=== PATIENT | male | born 1960 | race Caucasian/White ===

== ENCOUNTER 2022-09-02 14:43 | Observation (INO) ==
[2022-09-02 15:13] LABS: Basophils # (auto) 0.05 K/uL (0-0.2); Basophils % (auto) 0.5 %; Eosinophils # (auto) 0.06 K/uL (0-0.50); Eosinophils % (auto) 0.6 %; Hemoglobin 17.7 g/dl (14.0-18.0); Immature Granulocytes # (auto) 0.02 K/uL (0.01-0.20); Immature Granulocytes % (auto) 0.2 %; Lymphocytes # (auto) 1.84 K/uL (1.2-3.4); Lymphocytes % (auto) 18.9 %; Mean Corpuscular Hemoglobin 32.2 pg (25.0-34.0); Mean Corpuscular Hgb Conc 36.9 g/dL (32.0-36.0); Mean Corpuscular Volume 87.4 fL (80.0-100.0); Monocytes # (auto) 0.86 K/uL (0.11-0.59); Monocytes % (auto) 8.8 %; Neutrophils # (auto) 6.93 K/uL (1.40-6.50); Platelet Count 350 K/uL (130-400); RDW Coefficient of Variation 11.8 % (11.5-14.5); RDW Standard Deviation 37.8 fL (36.4-46.3); Red Blood Count 5.49 M/uL (4.70-6.10); White Blood Count 9.76 K/ul (4.8-10.8)
[2022-09-02 15:33] LABS: Alanine Aminotransferase 19 U/L (7-52); Albumin Globulin Ratio 1.5 (0.9-2); Albumin Level 4.8 gm/dl (3.4-5.0); Alkaline Phosphatase 69 U/L (34-104); Anion Gap 6 (3-11); Aspartate Aminotransferase 21 U/L (13-39); BUN Creatinine Ratio 11.9 (10-20); Bilirubin,Total 1.8 mg/dl (0.2-1.0); Blood Urea Nitrogen 14 mg/dl (6-23); Calcium 9.9 mg/dl (8.5-10.1); Carbon Dioxide 31 mmol/L (21-32); Chloride 98 mmol/L (98-107); Est GFR (African American) 75.1 ml/min; Est GFR (Non-African American) 64.8 ml/min; Globulin 3.2 gm/dl (2.5-4.0); Glucose 111 mg/dl (70-99(Fasting)); Lipase 33 U/L (11-82); Potassium 3.9 mmol/L (3.5-5.1); Sodium 135 mmol/L (136-145)
--- NOTE | 2022-09-02 15:59 | Emergency Department Note ---
ED Provider Note History of Present Illness Chief Complaint: Abdominal Pain Stated Complaint: ABDOMINAL PAIN Time Seen by Provider: 09/02/22 15:57 This is a 62-year-old male relatively healthy on no daily medications accompanied by his who presents with 3 to 4 days of abdominal pain and nausea. This began gradually. The pain is mostly located across the upper abdomen. The pain comes and goes. He has not identified any specific exacerbating or alleviating factors. He had a low-grade temperature of 99.8 and up to 101 several days ago though has not had any fevers since. He has not wanted to eat very much, thinks he is trying to stay hydrated and denies any dark urine. Symptoms do not seem to be exacerbated by eating food. Endorses some intermittent bloating. He endorses a little bit of constipation over the past 1 to 2 days which is abnormal for him. His thinks that his abdomen may be slightly more yellow than normal, no changes in his eye color. He tried taking a leftover oxycodone from his prior shoulder surgery 1.5 months ago and did have some relief in pain last night. He denies any vomiting or diarrhea, but does feel nauseous right now. Last colonoscopy was 1.5 years ago, he thinks it was relatively normal. No significant GI history, no prior abdominal surgeries. Denies any sinus congestion, cough, chest pain, shortness of breath, dysuria, hematuria. Home Medications Medication Instructions Recorded Confirmed Type oxycodone 5 mg tablet 2.5 mg PO ONCE PRN Pain 09/02/22 09/02/22 History Allergies Allergy/AdvReac Type Severity Reaction Status Date / Time No Known Allergies Allergy Verified 09/02/22 17:47 Past Med/Surg History Medical History History of COVID-19 "begin." 03/2022, home test, not hosp; no [id number] test Rotator cuff tear, right Surgical History History of esophagogastroduodenoscopy (EGD) "balloon dilation of my esophageal sphincter" Hx of colonoscopy Social History Smoking Status: Never smoker Second Hand Exposure: No; Hx Alcohol Use: Yes Hx Substance Use: No Preferred Language: Moroccan Communication Ability: Effective District Court Judge Required: No Current Living Situation: Spouse Feels Safe at Home: Yes Assistive Devices: Other Physical Exam Vital Signs Vital Signs - 24 hr 09/02/22 14:43 09/02/22 14:43 09/02/22 17:48 Temperature 97.5 F L Temperature Source Temporal Artery Scan Pulse Rate 78 Pulse Rate [Apical] 78 69 Respiratory Rate 16 16 18 Blood Pressure 149/97 H Blood Pressure [Left Arm] 149/97 H 162/69 H Blood Pressure Mean 114 Blood Pressure Mean [Left Arm] 114 100 Pulse Oximetry 99 99 99 Oxygen Delivery Method Room Air Sepsis Recent Fever Within 48 Hours No Sepsis New/Unexplained Change in Mental Status N/A Sepsis Action Taken by Nursing No Action Required 09/02/22 19:07 Temperature Temperature Source Pulse Rate Pulse Rate [Apical] 67 Respiratory Rate 18 Blood Pressure Blood Pressure [Left Arm] 162/95 H Blood Pressure Mean Blood Pressure Mean [Left Arm] 117 Pulse Oximetry 99 Oxygen Delivery Method Room Air Sepsis Recent Fever Within 48 Hours Sepsis New/Unexplained Change in Mental Status Sepsis Action Taken by Nursing CONSTITUTIONAL: Well developed, well nourished, mildly ill and uncomfortable appearing, otherwise pleasant. HEAD: Normocephalic, atraumatic. EYES: PERRL, conjunctivae normal, extraocular muscles intact. No scleral icterus ENMT: External ears normal. Nose with normal external appearance, no congestion. Oral mucous membranes slightly dry. Oropharynx otherwise normal. NECK: Full active range of motion. LYMPHATIC: No cervical adenopathy RESPIRATORY: Breathing unlabored and symmetric. Lungs clear to auscultation bilaterally. No wheeze, rales, or rhonchi. CARDIOVASCULAR: Regular rate and rhythm. No murmurs, rubs, or gallops. CHEST: Nontender, no crepitus. ABDOMEN: Mild jaundice of the abdomen. Normal bowel sounds. Patient slightly tense when palpating the diffuse abdomen. There is no focal tenderness. No peritonitis. Negative De Jesus sign. No CVA tenderness bilaterally. MUSCULOSKELETAL: Moves all extremities at all joints without pain or difficulty. No edema in bilateral lower extremities. SKIN: [place], warm, dry. NEUROLOGIC: Awake, alert, oriented. Gaze is conjugate. Face symmetric, speech normal. Moves head and all four extremities spontaneously. PSYCHIATRIC: Appropriate. Normal affect Course Administered Medications Discontinued Medications Sodium Chloride (Nss 1000ml) 1,000 mls @ 999 mls/hr IV .Q1H1M ONE Stop: 09/02/22 17:22 Last Infusion: 09/02/22 18:20 Dose: 0 mls/hr Documented By: Admin: 09/02/22 17:46 Dose: 999 mls/hr Documented By: CANDI Ioversol (Optiray 350 100ml) 90 ml IV ONCE ONE Stop: 09/02/22 16:58 Last Admin: 09/02/22 16:57 Dose: 90 ml Documented By: IVELISSE Morphine Sulfate (Morphine Sulfate 4 Mg/Ml 1 Ml Carp\\Vial) 4 mg IV NOW STA Stop: 09/02/22 16:23 Last Admin: 09/02/22 17:46 Dose: 4 mg Documented By: CANDI Ondansetron HCl (Ondansetron Inj 2 Mg/Ml 2 Ml Vial) 4 mg IV NOW STA Stop: 09/02/22 16:23 Last Admin: 09/02/22 17:46 Dose: 4 mg Documented By: CANDI Medical Decision Making Differential Diagnosis Diverticulitis, appendicitis, obstruction, hepatobiliary dysfunction, cholecystitis, cholelithiasis, choledocholithiasis, hepatitis, mesenteric adenitis, vascular, cardiac ischemia, malignancy, renal colic, UTI, pyelo nephritis, abscess, perforation, gastroenteritis, foodborne illness, among other pathology Medical Records Attestation: I reviewed the patient's medical records. Laboratory Data 09/02/22 14:54 09/02/22 14:54 Lab Results 09/02/22 09/02/22 09/02/22 Range/Units 14:54 14:54 18:15 WBC 9.76 (4.8-10.8) K/ul RBC 5.49 (4.70-6.10) M/uL Hgb 17.7 (14.0-18.0) g/dl Hct 48.0 (42.0-52.0) % MCV 87.4 (80.0-100.0) fL MCH 32.2 (25.0-34.0) pg MCHC 36.9 H (32.0-36.0) g/dL RDW Std Deviation 37.8 (36.4-46.3) fL RDW Coeff of Shannon 11.8 (11.5-14.5) % Plt Count 350 (130-400) K/uL MPV 10.0 (9.4-12.4) fL Immature Gran % (Auto) 0.2 % Neut % (Auto) 71.0 % Lymph % (Auto) 18.9 % Montgomery % (Auto) 8.8 % Eos % (Auto) 0.6 % Baso % (Auto) 0.5 % Neut # (Auto) 6.93 H (1.40-6.50) K/uL Lymph # (Auto) 1.84 (1.2-3.4) K/uL Montgomery # (Auto) 0.86 H (0.11-0.59) K/uL Eos # (Auto) 0.06 (0-0.50) K/uL Baso # (Auto) 0.05 (0-0.2) K/uL Immature Gran # (Auto) 0.02 (0.01-0.20) K/uL Sodium 135 L (136-145) mmol/L Potassium 3.9 (3.5-5.1) mmol/L Chloride 98 (98-107) mmol/L Carbon Dioxide 31 (21-32) mmol/L Anion Gap 6 (3-11) BUN 14 (6-23) mg/dl Creatinine 1.18 (0.6-1.4) mg/dl Est Cr Clr Drug Dosing Not Reportable Est GFR ( Amer) 75.1 ml/min Est GFR (Non-Af Amer) 64.8 ml/min BUN/Creatinine Ratio 11.9 (10-20) Glucose 111 H (70-99(Fasting)) mg/dl Calcium 9.9 (8.5-10.1) mg/dl Total Bilirubin 1.8 H (0.2-1.0) mg/dl AST 21 (13-39) U/L ALT 19 (7-52) U/L Alkaline Phosphatase 69 (34-104) U/L Troponin I High Sens 6.3 (0-20) pg/ml Total Protein 8.0 (6.0-8.3) gm/dl Albumin 4.8 (3.4-5.0) gm/dl Globulin 3.2 (2.5-4.0) gm/dl Albumin/Globulin Ratio 1.5 (0.9-2) Lipase 33 (11-82) U/L Urine Color Urine Appearance (Clear) Urine pH (4.5-7.5) Ur Specific [place] (1.000-1.030) Urine Protein (Negative) Urine Glucose (UA) (Negative) Urine Ketones (Negative) Urine Blood (Negative) Urine Nitrite (Negative) Urine Bilirubin (Negative) Urine Urobilinogen (Negative) Ur Leukocyte Esterase (Negative) SARS-CoV-2, RNA, NAAT NEGATIVE (NEGATIVE) 09/02/22 Range/Units 18:25 WBC (4.8-10.8) K/ul RBC (4.70-6.10) M/uL Hgb (14.0-18.0) g/dl Hct (42.0-52.0) % MCV (80.0-100.0) fL MCH (25.0-34.0) pg MCHC (32.0-36.0) g/dL RDW Std Deviation (36.4-46.3) fL RDW Coeff of Shannon (11.5-14.5) % Plt Count (130-400) K/uL MPV (9.4-12.4) fL Immature Gran % (Auto) % Neut % (Auto) % Lymph % (Auto) % Montgomery % (Auto) % Eos % (Auto) % Baso % (Auto) % Neut # (Auto) (1.40-6.50) K/uL Lymph # (Auto) (1.2-3.4) K/uL Montgomery # (Auto) (0.11-0.59) K/uL Eos # (Auto) (0-0.50) K/uL Baso # (Auto) (0-0.2) K/uL Immature Gran # (Auto) (0.01-0.20) K/uL Sodium (136-145) mmol/L Potassium (3.5-5.1) mmol/L Chloride (98-107) mmol/L Carbon Dioxide (21-32) mmol/L Anion Gap (3-11) BUN (6-23) mg/dl Creatinine (0.6-1.4) mg/dl Est Cr Clr Drug Dosing Est GFR ( Amer) ml/min Est GFR (Non-Af Amer) ml/min BUN/Creatinine Ratio (10-20) Glucose (70-99(Fasting)) mg/dl Calcium (8.5-10.1) mg/dl Total Bilirubin (0.2-1.0) mg/dl AST (13-39) U/L ALT (7-52) U/L Alkaline Phosphatase (34-104) U/L Troponin I High Sens (0-20) pg/ml Total Protein (6.0-8.3) gm/dl Albumin (3.4-5.0) gm/dl Globulin (2.5-4.0) gm/dl Albumin/Globulin Ratio (0.9-2) Lipase (11-82) U/L Urine Color Yellow Urine Appearance Clear (Clear) Urine pH 6.5 (4.5-7.5) Ur Specific [place] > 1.045 H (1.000-1.030) Urine Protein Negative (Negative) Urine Glucose (UA) Negative (Negative) Urine Ketones 2+ H (Negative) Urine Blood Negative (Negative) Urine Nitrite Negative (Negative) Urine Bilirubin Negative (Negative) Urine Urobilinogen Negative (Negative) Ur Leukocyte Esterase Negative (Negative) SARS-CoV-2, RNA, NAAT (NEGATIVE) Imaging Data Radiologist's Impression: Abdomen/Pelvis CT 09/02/22 16:22 CT OF THE ABDOMEN AND PELVIS WITH CONTRAST CLINICAL HISTORY: 4 days upper abd pain, anorexia, low grade temp COMPARISON STUDY: None. TECHNIQUE: Following IV administration of 90 mL of Optiray, axial images of the abdomen and pelvis were obtained from the lung bases to the proximal femurs. Images were reviewed in the axial, sagittal, and coronal planes. IV contrast was administered without complication. Automated exposure control was utilized for the study. A dose lowering technique was utilized adhering to the principles of ALARA. CT DOSE: 380.72 mGy.cm FINDINGS: Mild circumferential wall thickening of the distal esophagus is noted. No pneumatosis, free air or portal venous gas is present. Liver morphology is normal. There is no biliary ductal dilatation. There is a 2.9 cm intermediate attenuation right hepatic lobe lesion on axial image 106 of 401. This may have minimal nodular peripheral enhancement. Spleen, adrenal glands, kidneys and pancreas are unremarkable. There is no hydronephrosis. Bladder wall thickening is noted. This is accentuated by underdistention. No urinary calculi are present. The caliber and wall thickness of small and large bowel are normal. There is colonic diverticulosis without evidence for acute diverticulitis. There is no evidence for acute appendicitis. There is no free fluid. No acute fracture is present. There are no suspicious osseous lesions. IMPRESSION: 1. No bowel obstruction. No bowel wall thickening. No evidence for acute appendicitis. 2. Mild circumferential wall thickening of the distal esophagus. This may reflect esophagitis. 3. Bladder wall thickening. This could be due to underdistention however could be correlated with urinalysis. 4. 2.9 cm intermediate attenuation right hepatic lobe lesion. This is indeterminate however a hemangioma is favored. Nonemergent right upper quadrant ultrasound is recommended. ACT 112: Negative or not required by law. Electronically signed by: Gage Wilkinson M.D. 09/02/2022 5:48 PM Liver Ultrasound 09/02/22 18:13 ABDOMINAL ULTRASOUND, RIGHT UPPER QUADRANT HISTORY: diffuse upper abd pain, elevated bilirubin. COMPARISON: Abdomen and pelvis CT 09/02/2022. FINDINGS: Pancreas: The pancreatic tail is obscured by overlying bowel gas. The remaining portions of the pancreas are within normal limits. The pancreatic duct is borderline dilated measuring 3 mm in diameter. Liver: There is a 3.2 x 2.7 x 2.5 cm hyperechoic lesion within the right hepatic lobe. Although technically indeterminate by ultrasound this likely represents a hemangioma when compared to the prior CT examination. Gallbladder: Small amount of sludge within the gallbladder. No gallstones. No gallbladder wall thickening. Negative sonographic De Jesus sign. CBD: 8 mm. Right kidney: No hydronephrosis. IMPRESSION: 1. Interval development of mild dilatation of the common bile duct and main pancreatic duct since the same day CT performed 3 hours earlier. Therefore, this could represent an obstructing stone or less likely an occult obstructing lesion. GI consultation recommended. 2. Redemonstration of the 3.2 x 2.7 x 2.5 cm hyperechoic lesion within the right hepatic lobe. This favors a hemangioma. ACT 112: Negative or not required by law. . Electronically signed by: Jacoby Lee M.D. 09/02/2022 7:46 PM ECG Data Attestation: I personally reviewed and interpreted this ECG as follows: (Sinus rhythm with a rate of 67. Intervals within normal limits. Normal axis. No acute ST elevation or evidence of ischemia. When compared to prior from 06/13/2022, no significant change.) MDM Narrative 62-year-old male presents with 3 to 4 days of generalized upper abdominal pain, anorexia, nausea. He had a low-grade temperature several days ago. Reports some constipation over the past few days which is abnormal for him. No significant GI history. Patient is mildly uncomfortable and ill-appearing though is otherwise pleasant, in no distress. His abdomen appears slightly jaundiced and I confirmed this after his visualized his abdomen. He has some diffuse abdominal tenderness however no focal tenderness is appreciated. Negative De Jesus sign. Oral mucous membranes are dry. Patient was given IV fluids, morphine, and Zofran for pain and nausea. Labs demonstrate no leukocytosis or anemia. Bilirubin is elevated at 1.8. Urine is concentrated at 1.045 and there are ketones present though no evidence of infection. COVID is negative. ECG and troponin are negative. CT of the abdomen pelvis was obtained demonstrating mild circumferential narrowing of the distal esophagus, this is patient's baseline after speaking with him. No other acute abnormalities were identified. Due to his elevation in bilirubin and symptoms, right upper quadrant ultrasound was obtained demonstrating interval dilation of the common bile duct and main pancreatic duct up to 8 mm concerning for an obstructing stone or less likely occult obstructing lesion. Patient rested comfortably and stated that he was feeling better after the initial therapy. His vitals remained stable. He remained hemodynamically stable. Due to his potentially evolving presentation with an elevation in bilirubin and slight jaundice, I recommended admission to the hospital with GI consult, may require ERCP. Patient comfortable with this plan. Case was discussed with [facility] hospitalist group and patient will be admitted for further evaluation and management. Impression Common bile duct dilatation, Elevated bilirubin, Acute upper abdominal pain Discharge Plan Visit Data Chief Complaint: Abdominal Pain Stated Complaint: ABDOMINAL PAIN ED Provider: Schuyler Funes ED Midlevel Provider: Sanjay Felton Discharge Problem: Common bile duct dilatation, Elevated bilirubin, Acute upper abdominal pain Patient Disposition: Admitted As Inpatient Condition: Good Forms Stand Alone Forms[facility] Pres[facility] Prescriptions: No Action oxycodone 5 mg tablet 2.5 mg PO ONCE PRN (Reason: Pain) Rx Instructions: PER PT'S SPOUSE "HAD A FEW LEFT OVER FROM SURGERY IN MAY". Referrals Referrals: Niels Cruz MD [Primary Care Provider] -
[2022-09-02] MEDS ORDERED: ONDANSETRON INJ 2 MG/ML 2 ML VIAL IV STA (16:22)
[2022-09-02] MEDS ORDERED: MoRPHine SULFATE 4 MG/ML 1 ML CARP\\VIAL IV STA (16:22)
[2022-09-02] MEDS ORDERED: SODIUM CHLORIDE 0.9% 1000ML 1,000 ML IV ONE (16:22)
[2022-09-02] MEDS ORDERED: OPTIRAY 350 100ml IV ONE (16:57)
--- NOTE | 2022-09-02 17:49 | CT Scan Report ---
CT OF THE ABDOMEN AND PELVIS WITH CONTRAST CLINICAL HISTORY: 4 days upper abd pain, anorexia, low grade temp COMPARISON STUDY: None. TECHNIQUE: Following IV administration of 90 mL of Optiray, axial images of the abdomen and pelvis we re obtained from the lung bases to the proximal femurs. Images were reviewed in the axial, sagittal, and coronal planes. IV contrast was administered without complication. Automated exposure control wa s utilized for the study. A dose lowering technique was utilized adhering to the principles of ALARA . CT DOSE: 380.72 mGy.cm FINDINGS: Mild circumferential wall thickening of the distal esophagus is noted. No pneumatosis, free air or portal venous gas is present. Liver morphology is normal. There is no biliary ductal dilatati on. There is a 2.9 cm intermediate attenuation right hepatic lobe lesion on axial image 106 of 401. T his may have minimal nodular peripheral enhancement. Spleen, adrenal glands, kidneys and pancreas are unremarkable. There is no hydronephrosis. Bladder wall thickening is noted. This is accentuated by u nderdistention. No urinary calculi are present. The caliber and wall thickness of small and large bow el are normal. There is colonic diverticulosis without evidence for acute diverticulitis. There is no evidence for acute appendicitis. There is no free fluid. No acute fracture is present. There are no suspicious osseous lesions. IMPRESSION: 1. No bowel obstruction. No bowel wall thickening. No evidence for acute appendicitis. 2. Mild circumferential wall thickening of the distal esophagus. This may reflect esophagitis. 3. Bladder wall thickening. This could be due to underdistention however could be correlated with uri nalysis. 4. 2.9 cm intermediate attenuation right hepatic lobe lesion. This is indeterminate however a hemangi linda is favored. Nonemergent right upper quadrant ultrasound is recommended. ACT 112: Negative or not required by law. Electronically signed by: Gage Wilkinson M.D. 09/02/2022 5:48 PM
[2022-09-02 18:11] LABS: Troponin I High Sensitivity 6.3 pg/ml (0-20)
[2022-09-02 18:46] LABS: Appearance Urine Clear (Clear); Bilirubin Urine Negative (Negative); Blood Urine Negative (Negative); Color Urine Yellow; Glucose Urine UA Negative (Negative); Ketones Urine 2+ (Negative); Leukocyte Esterase Urine Negative (Negative); Nitrite Urine Negative (Negative); Protein Urine Negative (Negative); Specific Gravity Urine > 1.045 (1.000-1.030); Urobilinogen Urine Negative (Negative); pH Urine 6.5 (4.5-7.5)
--- NOTE | 2022-09-02 19:47 | Ultrasound Report ---
ABDOMINAL ULTRASOUND, RIGHT UPPER QUADRANT HISTORY: diffuse upper abd pain, elevated bilirubin. COMPARISON: Abdomen and pelvis CT 09/02/2022. FINDINGS: Pancreas: The pancreatic tail is obscured by overlying bowel gas. The remaining portions of the pancr eas are within normal limits. The pancreatic duct is borderline dilated measuring 3 mm in diameter. Liver: There is a 3.2 x 2.7 x 2.5 cm hyperechoic lesion within the right hepatic lobe. Although techn ically indeterminate by ultrasound this likely represents a hemangioma when compared to the prior CT examination. Gallbladder: Small amount of sludge within the gallbladder. No gallstones. No gallbladder wall thicke eugenio. Negative sonographic De Jesus sign. CBD: 8 mm. Right kidney: No hydronephrosis. IMPRESSION: 1. Interval development of mild dilatation of the common bile duct and main pancreatic duct since the same day CT performed 3 hours earlier. Therefore, this could represent an obstructing stone or less likely an occult obstructing lesion. GI consultation recommended. 2. Redemonstration of the 3.2 x 2.7 x 2.5 cm hyperechoic lesion within the right hepatic lobe. This f avors a hemangioma. ACT 112: Negative or not required by law. . Electronically signed by: Jacoby Lee M.D. 09/02/2022 7:46 PM
--- NOTE | 2022-09-02 21:03 | History & Physical Report ---
Date of Service September 02, 2022 Assessment & Plan (1) Acute upper abdominal pain: Plan: 62-year-old male with no significant past medical history presenting with 4 days of persistent upper abdominal pain, nausea and bloating. He is afebrile and hemodynamically stable, nontoxic in appearance on exam. Labs as above are significant for elevation of total bilirubin = 1.8. Normal AST, ALT, alkaline phosphatase and lipase. Liver ultrasound reveals small amount of sludge within the gallbladder, no gallstones or gallbladder wall thickening. Negative sonographic De Jesus sign. He does have mild dilatation of the common bile duct in the main pancreatic duct. CBD measures 8 mm. Also found with a 3.2 x 2.7 x 2.5 cm hyperechoic lesion in the right hepatic lobe favoring hemangioma. Concern for obstructing stone as etiology of pain, mild elevation of total bilir ubin and dilatation of CBD and pancreatic ducts. No evidence of acute cholecystitis, pancreatitis or cholangitis at this time. Observation to medical floor Keep n.p.o. Check MRCPpatient reports that he is severely claustrophobic and requires medication prior to MRI imaging. 1 mg of IV Valium has been ordered to be administered on-call to MRI. Repeat LFTs in the morning Morphine as needed for pain Zofran as needed for nausea Empiric Zosyn for now GI consultation appreciated -Patient had recent repair of his right rotator cuff performed on 07/10/2022. He requests careful positioning of his upper extremities for any imaging studies or procedures he may require. Patient with prior esophageal dilation. He is requesting that this be performed again if possible should he require procedure tomorrow. F/E/NLR at 125 mL/h x 2 L, electrolytes within normal limits, n.p.o. Prophylaxislow risk for DVT, IV fluids and encourage ambulation Codefull per discussion with patient, at bedside Dispositionobservation to medical History of Present Illness Chief Complaint: abdominal pain Primary Care Provider: Niels Cruz MD Elliot Gonzalez is a 62-year-old male with no significant past medical history presenting with 4 days of persistent abdominal pain. Patient states 4 days ago he developed discomfort in the upper abdomen. He initially thought that it was secondary to a "stomach bug". However, the pain has been persistent for the last 4 days. Pain is severe ranging 7-10/10, constant, nonradiating, nonpleuritic. He has had nausea as well as the feeling of bloating with minimal oral intake. No vomiting or diarrhea. He has not eaten or drank much over the last 4 days. Patient did take half an oxycodone tablet she had leftover from his recent rotator cuff surgery. He reports some relief with that. He was able to sleep through the night and felt slightly better this morning. Otherwise,he denies chest pain, cough, shortness of breath. Denies fever or chills. No additional complaints at this time. In the ER, patient is afebrile, mildly hypertensive otherwise hemodynamically stable. No acute distress. He was administered morphine as well as Zofran which improved his symptoms. ER course: Morphine 4 mg IV Zofran 4 mg IV Normal saline x1 L Allergies Allergy/AdvReac Type Severity Reaction Status Date / Time No Known Allergies Allergy Verified 09/02/22 17:47 Home Medications Medication Instructions Recorded Confirmed Type oxycodone 5 mg tablet 2.5 mg PO ONCE PRN Pain 09/02/22 09/02/22 History Past Med/Surg History Medical History Rotator cuff tear, right Surgical History History of esophagogastroduodenoscopy (EGD) "balloon dilation of my esophageal sphincter" History of repair of rotator cuff 2performed by Dr. Khadar Arcos Hx of colonoscopy Social History Smoking Status: Never smoker Second Hand Exposure: No; Hx Alcohol Use: Yes Hx Substance Use: No Preferred Language: Namibian Communication Ability: Effective Corporate Safety Coordinator Required: No Current Living Situation: Spouse Feels Safe at Home: Yes Assistive Devices: Other Review of Systems Review of Systems: All systems reviewed & are unremarkable except as noted in HPI & below Physical Exam Physical Exam: General: patient resting comfortably, NAD, non-toxic in appearance, AA&O x 4 Skin: warm, dry, intact, no rashes or lesions HEENT: NC/AT, PERRL, EOMI, anicteric sclera, conjunctiva without injection, external ear normal to inspection and nontender, nares patent, slightly dry mucus membranes, dentition intact, no oropharyngeal lesions, neck supple, trachea midline, no LAD, no thyromegaly, no JVD Heart: +S1/S2, regular, no m/r/g Lungs: equal air entry bilaterally, no rales/rhonchi/wheezes Abd: +BS, soft, mild tenderness in the right upper quadrant without rebound/guarding/peritoneal signs, abdomen nondistended, no masses/organomegal y/ascites Ext: warm, 2+ pulses in UE/LE bilaterally, no clubbing/cyanosis or edema Neuro: nonfocal, patient AA&O x 4, speech intact, no facial droop, moving all extremities on command with equal strength 5/5 Results & Data Results & Data ([facility]) Vital Signs (Past 12 Hours) Vital Signs Temp Pulse Pulse Resp BP BP Pulse Ox 09/02/22 19:07 67 18 162/95 H 99 09/02/22 17:48 69 18 162/69 H 99 09/02/22 14:43 78 16 149/97 H 99 09/02/22 14:43 36.4 C L 78 16 149/97 H 99 O2 Del Method 09/02/22 19:07 Room Air 09/02/22 17:48 Room Air 09/02/22 14:43 09/02/22 14:43 Laboratory Results Laboratory Results WBC 9.76 K/ul (4.8-10.8) 09/02/22 14:54 RBC 5.49 M/uL (4.70-6.10) 09/02/22 14:54 Hgb 17.7 g/dl (14.0-18.0) 09/02/22 14:54 Hct 48.0 % (42.0-52.0) 09/02/22 14:54 MCV 87.4 fL (80.0-100.0) 09/02/22 14:54 MCH 32.2 pg (25.0-34.0) 09/02/22 14:54 MCHC 36.9 g/dL (32.0-36.0) H 09/02/22 14:54 RDW Std Deviation 37.8 fL (36.4-46.3) 09/02/22 14:54 RDW Coeff of Shannon 11.8 % (11.5-14.5) 09/02/22 14:54 Plt Count 350 K/uL (130-400) 09/02/22 14:54 MPV 10.0 fL (9.4-12.4) 09/02/22 14:54 Immature Gran % (Auto) 0.2 % 09/02/22 14:54 Neut % (Auto) 71.0 % 09/02/22 14:54 Lymph % (Auto) 18.9 % 09/02/22 14:54 Wayne % (Auto) 8.8 % 09/02/22 14:54 Eos % (Auto) 0.6 % 09/02/22 14:54 Baso % (Auto) 0.5 % 09/02/22 14:54 Neut # (Auto) 6.93 K/uL (1.40-6.50) H 09/02/22 14:54 Lymph # (Auto) 1.84 K/uL (1.2-3.4) 09/02/22 14:54 Wayne # (Auto) 0.86 K/uL (0.11-0.59) H 09/02/22 14:54 Eos # (Auto) 0.06 K/uL (0-0.50) 09/02/22 14:54 Baso # (Auto) 0.05 K/uL (0-0.2) 09/02/22 14:54 Immature Gran # (Auto) 0.02 K/uL (0.01-0.20) 09/02/22 14:54 Sodium 135 mmol/L (136-145) L 09/02/22 14:54 Potassium 3.9 mmol/L (3.5-5.1) 09/02/22 14:54 Chloride 98 mmol/L (98-107) 09/02/22 14:54 Carbon Dioxide 31 mmol/L (21-32) 09/02/22 14:54 Anion Gap 6 (3-11) 09/02/22 14:54 BUN 14 mg/dl (6-23) 09/02/22 14:54 Creatinine 1.18 mg/dl (0.6-1.4) 09/02/22 14:54 Est Cr Clr Drug Dosing Not Reportable 09/02/22 14:54 Est GFR ( Amer) 75.1 ml/min 09/02/22 14:54 Est GFR (Non-Af Amer) 64.8 ml/min 09/02/22 14:54 BUN/Creatinine Ratio 11.9 (10-20) 09/02/22 14:54 Glucose 111 mg/dl (70-99(Fasting)) H 09/02/22 14:54 Calcium 9.9 mg/dl (8.5-10.1) 09/02/22 14:54 Total Bilirubin 1.8 mg/dl (0.2-1.0) H 09/02/22 14:54 AST 21 U/L (13-39) 09/02/22 14:54 ALT 19 U/L (7-52) 09/02/22 14:54 Alkaline Phosphatase 69 U/L (34-104) 09/02/22 14:54 Troponin I High Sens 6.3 pg/ml (0-20) 09/02/22 14:54 Total Protein 8.0 gm/dl (6.0-8.3) 09/02/22 14:54 Albumin 4.8 gm/dl (3.4-5.0) 09/02/22 14:54 Globulin 3.2 gm/dl (2.5-4.0) 09/02/22 14:54 Albumin/Globulin Ratio 1.5 (0.9-2) 09/02/22 14:54 Lipase 33 U/L (11-82) 09/02/22 14:54 Urine Color Yellow 09/02/22 18:25 Urine Appearance Clear (Clear) 09/02/22 18:25 Urine pH 6.5 (4.5-7.5) 09/02/22 18:25 Ur Specific Upham > 1.045 (1.000-1.030) H 09/02/22 18:25 Urine Protein Negative (Negative) 09/02/22 18:25 Urine Glucose (UA) Negative (Negative) 09/02/22 18:25 Urine Ketones 2+ (Negative) H 09/02/22 18:25 Urine Blood Negative (Negative) 09/02/22 18:25 Urine Nitrite Negative (Negative) 09/02/22 18:25 Urine Bilirubin Negative (Negative) 09/02/22 18:25 Urine Urobilinogen Negative (Negative) 09/02/22 18:25 Ur Leukocyte Esterase Negative (Negative) 09/02/22 18:25 SARS-CoV-2, RNA, NAAT NEGATIVE (NEGATIVE) 09/02/22 18:15 Impressions Abdomen/Pelvis CT 09/02/22 16:22 CT OF THE ABDOMEN AND PELVIS WITH CONTRAST CLINICAL HISTORY: 4 days upper abd pain, anorexia, low grade temp COMPARISON STUDY: None. TECHNIQUE: Following IV administration of 90 mL of Optiray, axial images of the abdomen and pelvis were obtained from the lung bases to the proximal femurs. Images were reviewed in the axial, sagittal, and coronal planes. IV contrast was administered without complication. Automated exposure control was utilized for the study. A dose lowering technique was utilized adhering to the principles of ALARA. CT DOSE: 380.72 mGy.cm FINDINGS: Mild circumferential wall thickening of the distal esophagus is noted. No pneumatosis, free air or portal venous gas is present. Liver morphology is normal. There is no biliary ductal dilatation. There is a 2.9 cm intermediate attenuation right hepatic lobe lesion on axial image 106 of 401. This may have minimal nodular peripheral enhancement. Spleen, adrenal glands, kidneys and pancreas are unremarkable. There is no hydronephrosis. Bladder wall thickening is noted. This is accentuated by underdistention. No urinary calculi are present. The caliber and wall thickness of small and large bowel are normal. There is colonic diverticulosis without evidence for acute diverticulitis. There is no evidence for acute appendicitis. There is no free fluid. No acute fracture is present. There are no suspicious osseous lesions. IMPRESSION: 1. No bowel obstruction. No bowel wall thickening. No evidence for acute appendicitis. 2. Mild circumferential wall thickening of the distal esophagus. This may reflect esophagitis. 3. Bladder wall thickening. This could be due to underdistention however could be correlated with urinalysis. 4. 2.9 cm intermediate attenuation right hepatic lobe lesion. This is indeterminate however a hemangioma is favored. Nonemergent right upper quadrant ultrasound is recommended. ACT 112: Negative or not required by law. Electronically signed by: Gage Wilkinson M.D. 09/02/2022 5:48 PM Liver Ultrasound 09/02/22 18:13 ABDOMINAL ULTRASOUND, RIGHT UPPER QUADRANT HISTORY: diffuse upper abd pain, elevated bilirubin. COMPARISON: Abdomen and pelvis CT 09/02/2022. FINDINGS: Pancreas: The pancreatic tail is obscured by overlying bowel gas. The remaining portions of the pancreas are within normal limits. The pancreatic duct is borderline dilated measuring 3 mm in diameter. Liver: There is a 3.2 x 2.7 x 2.5 cm hyperechoic lesion within the right hepatic lobe. Although technically indeterminate by ultrasound this likely represents a hemangioma when compared to the prior CT examination. Gallbladder: Small amount of sludge within the gallbladder. No gallstones. No gallbladder wall thickening. Negative sonographic De Jesus sign. CBD: 8 mm. Right kidney: No hydronephrosis. IMPRESSION: 1. Interval development of mild dilatation of the common bile duct and main pancreatic duct since the same day CT performed 3 hours earlier. Therefore, this could represent an obstructing stone or less likely an occult obstructing lesion. GI consultation recommended. 2. Redemonstration of the 3.2 x 2.7 x 2.5 cm hyperechoic lesion within the right hepatic lobe. This favors a hemangioma. ACT 112: Negative or not required by law. . Electronically signed by: Jacoby Lee M.D. 09/02/2022 7:46 PM ECG Additional Comments: EKGPer my interpretation, study shows normal sinus rhythm at 67 bpm. ND = 170, QRS = 96, QTc = 433, normal waveform. No evidence of ischemic changes. PG Care Time/CCT Total # of Minutes Spent Total Time Spent with Patient: Total time spent is greater than 50% in coordination of care (as documented) at patient's floor/unit and/or counseling patient: Coding Level of Care Code 78246 INT INP/OBS CARE 2/55MIN Diagnoses Acute upper abdominal pain R10.10
[2022-09-02] MEDS ORDERED: POLYETHYLENE (MIRALAX) 17 GM PACK PO PRN (22:02)
[2022-09-02] MEDS ORDERED: ONDANSETRON INJ 2 MG/ML 2 ML VIAL IV PRN (22:02)
[2022-09-02] MEDS ORDERED: DOCUSATE SODIUM 100 MG CAP PO PRN (22:02)
[2022-09-02] MEDS ORDERED: MoRPHine SULFATE 2 MG/ML CARP IV PRN (22:02)
[2022-09-02] MEDS ORDERED: MoRPHine SULFATE 4 MG/ML 1 ML CARP\\VIAL IV PRN (22:02)
[2022-09-02] MEDS ORDERED: ACETAMINOPHEN 325 MG TAB PO PRN (22:02)
[2022-09-02] MEDS ORDERED: LORazepam 2 MG/1 ML VIAL IV PRN (22:53)
[2022-09-02] MEDS ORDERED: PIPERACILLIN/TAZOBACTAM 3.375 GM in DEXTROSE 5% 100 ML IV ONE (23:00)
[2022-09-03] MEDS: PIPERACILLIN/TAZOBACTAM 3.375 GM in DEXTROSE 5% 100 ML IV SCH ×3 (05:53→20:58)
--- NOTE | 2022-09-03 07:28 | Gastrointestinal Consultation ---
Date of Consultation September 03, 2022 Assessment & Plan (1) Common bile duct dilatation: Presentation of biliary colic with right upper quadrant abdominal pain with normal LFTs except mildly elevated bilirubin 1.8. Right upper ultrasound suggest CBD at 8 mm. This is mildly enlarged. He is intermediate probability of a retained common bile duct stone pending on these results, however today's LFTs are pending. I will follow today's LFTs order MRCP to follow those results. If LFTs and/or MRCP are revealing of a biliary obstruction we will plan on ERCP at a time to be determined. At this point he does not have any evidence or concerns for symptoms of cholangitis. Continue supportive care. We will also likely require cholecystectomy during this admission. (2) Acute upper abdominal pain: History of Present Illness Reason for Consultation: Right upper quadrant abdominal pain Attending Physician: Beckie Salgado, History of Present Illness This is a 62-year-old gentleman with no significant past medical history who has presented to the emergency room with 4 days of abdominal pain. This is located in his epigastric and right upper quadrant, its been persistent and intermittent for the last 4 days, he has had nausea as well as bloating with this. He did take a pain medication at home that he had leftover that did provide with some relief, denies any shortness of breath, fevers or chills. Upon presentation to the emergency room he was given pain medication nausea medication as well as IV fluids. Labs include a white count of 9, hemoglobin of 17 hematocrit of 48 Sodium 135 potassium 3.9 chloride 98 carbon dioxide 31 BUN 14 creatinine 1.18 Total bilirubin 1.8 AST 21 ALT 19 Alk phos [address] admission had a CT scan of the abdomen that showed some thickening of the distal esophagus consistent esophagitis, no biliary ductal dilatation, however then underwent ultrasound 2 hours later some mild elevations of his CBD up to 8 mm. ABDOMINAL ULTRASOUND, RIGHT UPPER QUADRANT HISTORY: diffuse upper abd pain, elevated bilirubin. COMPARISON: Abdomen and pelvis CT 09/02/2022. FINDINGS: Pancreas: The pancreatic tail is obscured by overlying bowel gas. The remaining portions of the pancreas are within normal limits. The pancreatic duct is borderline dilated measuring 3 mm in diameter. Liver: There is a 3.2 x 2.7 x 2.5 cm hyperechoic lesion within the right hepatic lobe. Although technically indeterminate by ultrasound this likely represents a hemangioma when compared to the prior CT examination. Gallbladder: Small amount of sludge within the gallbladder. No gallstones. No gallbladder wall thickening. Negative sonographic De Jesus sign. CBD: 8 mm. Right kidney: No hydronephrosis. IMPRESSION: 1. Interval development of mild dilatation of the common bile duct and main pancreatic duct since the same day CT performed 3 hours earlier. Therefore, this could represent an obstructing stone or less likely an occult obstructing lesion. GI consultation recommended. 2. Redemonstration of the 3.2 x 2.7 x 2.5 cm hyperechoic lesion within the right hepatic lobe. This favors a hemangioma. Allergies Allergy/AdvReac Type Severity Reaction Status Date / Time No Known Allergies Allergy Verified 09/02/22 17:47 Home Medications Medication Instructions Recorded Confirmed Type oxycodone 5 mg tablet 2.5 mg PO ONCE PRN Pain 09/02/22 09/02/22 History Patient History Medical History Rotator cuff tear, right Surgical History History of esophagogastroduodenoscopy (EGD) "balloon dilation of my esophageal sphincter" History of repair of rotator cuff 2performed by Dr. Khadar Arcos Hx of colonoscopy Social History Smoking Status: Never smoker Second Hand Exposure: No; Do You Dip or Chew Tobacco: No; Hx Alcohol Use: Yes Alcohol type: beer Hx Substance Use: No Preferred Language: Ukrainian Communication Ability: Effective Process Line Operator Required: No Beliefs That Will Affect Care: None Current Living Situation: Spouse Feels Safe at Home: Yes Safety Concerns: Feels Safe At This Time Assistive Devices: None Review of Systems Review of Systems: 10 system review negative except for stated as above Physical Exam Constitutional: WD/WN, vitals as above Cardiovascular: RRR, no murmur, no edema Gastrointestinal (Abdomen): normal bowel sounds, soft, nontender, no hepatosplenomegaly Results & Data ([facility]) Vital Signs (Past 12 Hours) Vital Signs Temp Pulse Resp BP Pulse Ox O2 Del Method 09/03/22 07:07 36.8 C 59 L 16 151/82 H 97 Room Air 09/02/22 21:50 36.7 C 67 18 161/87 H 98 Room Air 09/02/22 21:00 69 16 157/90 H 97 Room Air
[2022-09-03 07:38] LABS: Hematocrit (blood only) 44.1 % (42.0-52.0); Hemoglobin 16.1 g/dl (14.0-18.0); Mean Corpuscular Hemoglobin 32.5 pg (25.0-34.0); Mean Corpuscular Hgb Conc 36.5 g/dL (32.0-36.0); Mean Corpuscular Volume 88.9 fL (80.0-100.0); Mean Platelet Volume 10.2 fL (9.4-12.4); Platelet Count 292 K/uL (130-400); RDW Coefficient of Variation 11.9 % (11.5-14.5); RDW Standard Deviation 38.7 fL (36.4-46.3); Red Blood Count 4.96 M/uL (4.70-6.10); White Blood Count 7.42 K/ul (4.8-10.8)
[2022-09-03 07:59] LABS: Albumin Level 4.1 gm/dl (3.4-5.0); Bilirubin Direct 0.3 mg/dl (0-0.2); Bilirubin,Total 1.8 mg/dl (0.2-1.0); Calcium 8.8 mg/dl (8.5-10.1); Creatinine Clr Calc Pharmacy 78.1 ml/min; Est GFR (African American) 91.8 ml/min; Est GFR (Non-African American) 79.2 ml/min; Potassium 3.6 mmol/L (3.5-5.1); Total Protein 6.6 gm/dl (6.0-8.3)
--- NOTE | 2022-09-03 08:02 | Hospitalist Progress Note ---
Date of Service September 03, 2022 Assessment & Plan (1) Acute upper abdominal pain: Plan: Elliot Gonzalez is a 62yo male without significant PMHx who was admitted to [facility] on 09/02 for upper abdominal pain and nausea for several days. Epigastric Abdominal Pain; Common Bile Duct Dilatation Epigastric abdominal pain with associated nausea, bloating and decreased appetite/tolerance of PO over several days. US showed 8mm CBD dilatation, and Tb yahaira elevated at 1.8. MRCP this morning with mild dilatation of gallbladder and common bile duct, with biliary sludge in gallbladder, but no cholelithiasis --> Suspect recently passed stone. - GI consulted - no ERCP - ordered HIDA scan - pending - consulted surgery for consideration of cholecystectomy while admitted - recs pending HIDA scan results - start clear liquid diet, NPO at midnight for possible surgery - continue LR @125cc/hr - continue Zosyn for now - PRN graduated pain regimen: Tylenol/Morphine - trend LFTs in AM FEN/GI: clear liquid diet (and NPO at midnight), LR @125cc/hr DVT Prophylaxis: SCDs, no chemoppx due to possible surgery Code Status: full Disposition: med/surg (2) Common bile duct dilatation: Admission and Anticipated Discharge Date Admission Date: September 02, 2022 Supervising Physician Co-Signing Physician Notes Resident Physician Supervision Note: I independently interviewed and examined the patient and verified the adorno history and physical, reviewed labs and image studies and agree with resident findings and care plan. Subjective Patient reports that he is no longer nauseous, but still has very mild upper abdominal tenderness. He is hungry/thirsty but remains NPO pending GI eval/MRCP. Review of Systems Review of Systems: All systems reviewed & are unremarkable except as noted in HPI & below Physical Exam Physical Exam: General: A&Ox3. NAD. Cooperative. HEENT: Atraumatic, normocephalic. Pulm: CTAB A&P. -wheezes, -rales, -rhonchi. Symmetrical chest rise. No increase work of breathing. No respiratory distress. Cardiac: RRR, -mrg. Radial pulses intact and symmetrical. Abdominal: soft, non-distended, mild epigastric tenderness without guarding/rebound, BS x 4. Negative De Jesus sign. Skin: warm, dry, no rash Results & Data Results & Data ([facility]) Vital Signs (Past 12 Hours) Vital Signs Temp Pulse Resp BP Pulse Ox O2 Del Method 09/03/22 07:07 36.8 C 59 L 16 151/82 H 97 Room Air 09/02/22 21:50 36.7 C 67 18 161/87 H 98 Room Air 09/02/22 21:00 69 16 157/90 H 97 Room Air Resident Activity Tracking Resident Involvement: Resident Care Provided Care Provided: Adult Hospital Medicine
[2022-09-03] MEDS: LACTATED RINGER'S 1,000 ML IV SCH ×2 (09:35)
--- NOTE | 2022-09-03 10:45 | Magnetic Resonance Report ---
MRCP CLINICAL HISTORY: CBD and pancreatic duct dilation TECHNIQUE: Utilizing a 1.5 Syl magnet and dedicated coil, multiplanar, multiecho imaging of the [facility] abdomen was performed utilizing heavily T2 weighted pulsing sequences without IV contrast. COMPARISON STUDY: CT of the abdomen and pelvis and right upper quadrant ultrasound September 02, 2022 . FINDINGS: Slight biliary ductal dilatation is noted. The common bile duct measures 7 mm in caliber. N o common bile duct calculi are identified. There is slight dilatation of the pancreatic duct, measuri ng 3 mm in caliber. No caliber change within the pancreatic duct is noted. The gallbladder is mildly distended. There may be mild gallbladder wall thickening. A 2.9 cm lobulated T2 hyperintense right he patic lobe lesion was echogenic and favors a hemangioma. There are no additional hepatic lesions. Spl een, adrenal glands and kidneys are unremarkable. There is no peripancreatic fluid. There are no eddie pancreatic fluid collections. No pancreatic lesions identified on unenhanced exam. There is no abdomi nal lymphadenopathy. Caliber and wall thickness of visualized small and large bowel are normal. IMPRESSION: 1. Slight biliary and pancreatic ductal dilatation. No common bile duct calculi. No caliber change wi thin the pancreatic duct. No pancreatic lesion identified on unenhanced exam. 2. Mild gallbladder distention with minimal gallbladder wall thickening. If suspicion for acute yoly cystitis, a hepatobiliary scan could be obtained. 3. 2.9 cm T2 hyperintense right hepatic lobe lesion suggestive of a hemangioma. ACT 112: Negative or not required by law. Electronically signed by: Gage Wilkinson M.D. 09/03/2022 10:42 AM
--- NOTE | 2022-09-03 13:51 | Surgery Consultation ---
Date of Consultation September 03, 2022 Assessment & Plan (1) Acute upper abdominal pain: pt is a 62 year-old male who was admitted to hospital for abdominal pain, elevated FLTs, MRCP- no CBD stone, IMP: RUQ pain, elevated FLTs, cholecystitis ?, 2.9 cm intermediate attenuation right hepatic lobe lesion recommend to do HIDA scan to R/O acute cholecystitis, repeat labs in morning, IV fluid, control pain, if HIDA scan positive, recommend to do laparoscopic cholecystectomy, will F/U, pt and his agreed with the plan, I answered all questions, History of Present Illness Reason for Consultation: abdominal pain Requesting Physician: Wilma Mercedes MD Attending Physician: Wilma Mercedes MD History of Present Illness Chief Complaint: abdominal pain Primary Care Provider: Niels Cruz MD Elliot Gonzalez is a 62-year-old male with no significant past medical history presenting with 4 days of persistent abdominal pain. Patient states 4 days ago he developed discomfort in the upper abdomen. He initially thought that it was secondary to a "stomach bug". However, the pain has been persistent for the last 4 days. Pain is severe ranging 7-10/10, constant, nonradiating, nonpleuritic. He has had nausea as well as the feeling of bloating with minimal oral intake. No vomiting or diarrhea. He has not eaten or drank much over the last 4 days. Patient did take half an oxycodone tablet she had leftover from his recent rotator cuff surgery. He reports some relief with that. He was able to sleep through the night and felt slightly better this morning. Otherwise,he denies chest pain, cough, shortness of breath. Denies fever or chills. No additional complaints at this time. In the ER, patient is afebrile, mildly hypertensive otherwise hemodynamically stable. No acute distress. He was administered morphine as well as Zofran which improved his symptoms. ER course: Morphine 4 mg IV Zofran 4 mg IV Normal saline x1 L I ( Kev Savage MD ) got a call for consult abdominal pain, possible cholecystitis, I reviewed pt's H/P, labs and U/S , MRCP and CT scan with pt, pt has no significant abdominal pain now, no nausea, no vomiting, no fever, Allergies Allergy/AdvReac Type Severity Reaction Status Date / Time No Known Allergies Allergy Verified 09/02/22 17:47 Home Medications Medication Instructions Recorded Confirmed Type oxycodone 5 mg tablet 2.5 mg PO ONCE PRN Pain 09/02/22 09/02/22 Histo ry Past Med/Surg History Medical History Rotator cuff tear, right Surgical History History of esophagogastroduodenoscopy (EGD) "balloon dilation of my esophageal sphincter"History of repair of rotator cuff 07/10/2022erformed by Dr. Khadar ArcosHx of colonoscopy Social History Smoking Status: Never smoker Second Hand Exposure: No; Hx Alcohol Use: Yes Hx Substance Use: No Preferred Language: [place] Communication Ability: Effective Anodizer Required: No Current Living Situation: Spouse Feels Safe at Home: Yes Assistive Devices: Other Review of Systems Review of Systems: All systems reviewed & are unremarkable except as noted in HPI & below Allergies Allergy/AdvReac Type Severity Reaction Status Date / Time No Known Allergies Allergy Verified 09/02/22 17:47 Home Medications Medication Instructions Recorded Confirmed Type oxycodone 5 mg tablet 2.5 mg PO ONCE PRN Pain 09/02/22 09/02/22 History Patient History Medical History Rotator cuff tear, right Surgical History History of esophagogastroduodenoscopy (EGD) "balloon dilation of my esophageal sphincter" History of repair of rotator cuff 07/10/2022erformed by Dr. Khadar Arcos Hx of colonoscopy Social History Smoking Status: Never smoker Second Hand Exposure: No; Do You Dip or Chew Tobacco: No; Hx Alcohol Use: Yes Alcohol type: beer Hx Substance Use: No Preferred Language: [place] Communication Ability: Effective Anodizer Required: No Beliefs That Will Affect Care: None Current Living Situation: Spouse Feels Safe at Home: Yes Safety Concerns: Feels Safe At This Time Assistive Devices: None Physical Exam Constitutional: WD/WN, vitals as above no distress Eyes: PERRL, conjunctivae normal, anicteric sclerae Neck: trachea midline, no thyromegaly Respiratory: normal respiratory effort, lungs clear to auscultation Cardiovascular: RRR, no murmur, no edema Gastrointestinal (Abdomen): soft, mild tenderness at RUQ, no rebound pain, no distend, BS +, Musculoskeletal: no cyanosis or clubbing, extremities motor strength 5/5 Neurologic: patellar DTR's 2+ bilat, sensation intact Psychiatric: A+Ox3, euthymic affect Results & Data ([facility]) Vital Signs (Past 12 Hours) Vital Signs Temp Pulse Resp BP Pulse Ox O2 Del Method 09/03/22 07:07 36.8 C 59 L 16 151/82 H 97 Room Air Laboratory Results Abnormal lab results 09/02/22 09/02/22 09/02/22 Range/Units 14:54 14:54 18:25 MCHC 36.9 H (32.0-36.0) g/dL Neut # (Auto) 6.93 H (1.40-6.50) K/uL [place] # (Auto) 0.86 H (0.11-0.59) K/uL Sodium 135 L (136-145) mmol/L Glucose 111 H (70-99(Fasting)) mg/dl Total Bilirubin 1.8 H (0.2-1.0) mg/dl Direct Bilirubin (0-0.2) mg/dl Ur Specific Story > 1.045 H (1.000-1.030) Urine Ketones 2+ H (Negative) 09/03/22 09/03/22 Range/Units 06:41 06:41 MCHC 36.5 H (32.0-36.0) g/dL Neut # (Auto) (1.40-6.50) K/uL [place] # (Auto) (0.11-0.59) K/uL Sodium 135 L (136-145) mmol/L Glucose (70-99(Fasting)) mg/dl Total Bilirubin 1.8 H (0.2-1.0) mg/dl Direct Bilirubin 0.3 H (0-0.2) mg/dl Ur Specific Story (1.000-1.030) Urine Ketones (Negative) Diagnostic Findings MRCP CLINICAL HISTORY: CBD and pancreatic duct dilation TECHNIQUE: Utilizing a 1.5 Syl magnet and dedicated coil, multiplanar, multiecho imaging of the upper abdomen was performed utilizing heavily T2 weighted pulsing sequences without IV contrast. COMPARISON STUDY: CT of the abdomen and pelvis and right upper quadrant ultrasound September 02, 2022. FINDINGS: Slight biliary ductal dilatation is noted. The common bile duct measures 7 mm in caliber. No common bile duct calculi are identified. There is slight dilatation of the pancreatic duct, measuring 3 mm in caliber. No caliber change within the pancreatic duct is noted. The gallbladder is mildly distended. There may be mild gallbladder wall thickening. A 2.9 cm lobulated T2 hyperintense right hepatic lobe lesion was echogenic and favors a hemangioma. There are no additional hepatic lesions. Spleen, adrenal glands and kidneys are unremarkable. There is no peripancreatic fluid. There are no peripancreatic fluid collections. No pancreatic lesions identified on unenhanced exam. There is no abdominal lymphadenopathy. Caliber and wall thickness of visualized small and large bowel are normal. IMPRESSION: 1. Slight biliary and pancreatic ductal dilatation. No common bile duct calculi. No caliber change within the pancreatic duct. No pancreatic lesion identified on unenhanced exam. 2. Mild gallbladder distention with minimal gallbladder wall thickening. If suspicion for acute cholecystitis, a hepatobiliary scan could be obtained. 3. 2.9 cm T2 hyperintense right hepatic lobe lesion suggestive of a hemangioma. ABDOMINAL ULTRASOUND, RIGHT UPPER QUADRANT HISTORY: diffuse upper abd pain, elevated bilirubin. COMPARISON: Abdomen and pelvis CT 09/02/2022. FINDINGS: Pancreas: The pancreatic tail is obscured by overlying bowel gas. The remaining portions of the pancreas are within normal limits. The pancreatic duct is borderline dilated measuring 3 mm in diameter. Liver: There is a 3.2 x 2.7 x 2.5 cm hyperechoic lesion within the right hepatic lobe. Although technically indeterminate by ultrasound this likely represents a hemangioma when compared to the prior CT examination. Gallbladder: Small amount of sludge within the gallbladder. No gallstones. No gallbladder wall thickening. Negative sonographic De Jesus sign. CBD: 8 mm. Right kidney: No hydronephrosis. IMPRESSION: 1. Interval development of mild dilatation of the common bile duct and main pancreatic duct since the same day CT performed 3 hours earlier. Therefore, this could represent an obstructing stone or less likely an occult obstructing lesion. GI consultation recommended. 2. Redemonstration of the 3.2 x 2.7 x 2.5 cm hyperechoic lesion within the right hepatic lobe. This favors a hemangioma. ACT 112: Negative or not required by law. CT OF THE ABDOMEN AND PELVIS WITH CONTRAST CLINICAL HISTORY: 4 days upper abd pain, anorexia, low grade temp COMPARISON STUDY: None. TECHNIQUE: Following IV administration of 90 mL of Optiray, axial images of the abdomen and pelvis were obtained from the lung bases to the proximal femurs. Images were reviewed in the axial, sagittal, and coronal planes. IV contrast was administered without complication. Automated exposure control was utilized for the study. A dose lowering technique was utilized adhering to the principles of ALARA. CT DOSE: 380.72 mGy.cm FINDINGS: Mild circumferential wall thickening of the distal esophagus is noted. No pneumatosis, free air or portal venous gas is present. Liver morphology is normal. There is no biliary ductal dilatation. There is a 2.9 cm intermediate attenuation right hepatic lobe lesion on axial image 106 of 401. This may have minimal nodular peripheral enhancement. Spleen, adrenal glands, kidneys and pancreas are unremarkable. There is no hydronephrosis. Bladder wall thickening is noted. This is accentuated by underdistention. No urinary calculi are present. The caliber and wall thickness of small and large bowel are normal. There is colonic diverticulosis without evidence for acute diverticulitis. There is no evidence for acute appendicitis. There is no free fluid. No acute fracture is present. There are no suspicious osseous lesions. IMPRESSION: 1. No bowel obstruction. No bowel wall thickening. No evidence for acute appendicitis. 2. Mild circumferential wall thickening of the distal esophagus. This may reflect esophagitis. 3. Bladder wall thickening. This could be due to underdistention however could be correlated with urinalysis. 4. 2.9 cm intermediate attenuation right hepatic lobe lesion. This is indeterminate however a hemangioma is favored. Nonemergent right upper quadrant ultrasound is recommended. ACT 112: Negative or not required by law. .
--- NOTE | 2022-09-04 05:38 | Electrocardiogram Report ---
Test Reason : Blood Pressure : / mmHG Vent. Rate : 067 BPM Atrial Rate : 067 BPM P-R Int : 170 ms QRS Dur : 096 ms QT Int : 410 ms P-R-T Axes : 070 059 056 degrees QTc Int : 433 ms Normal sinus rhythm Normal ECG No previous ECGs available Confirmed by Minh Wright ([id number]) on 09/04/2022 5:38:11 AM Referred By: REFERRED SELF Confirmed By:Minh Wright
[2022-09-04] MEDS: PIPERACILLIN/TAZOBACTAM 3.375 GM in DEXTROSE 5% 100 ML IV SCH ×2 (05:57→13:29)
[2022-09-04 10:05] LABS: Basophils # (auto) 0.05 K/uL (0-0.2); Basophils % (auto) 0.6 %; Eosinophils # (auto) 0.21 K/uL (0-0.50); Eosinophils % (auto) 2.6 %; Hematocrit (blood only) 43.8 % (42.0-52.0); Immature Granulocytes # (auto) 0.03 K/uL (0.01-0.20); Immature Granulocytes % (auto) 0.4 %; Lymphocytes # (auto) 1.58 K/uL (1.2-3.4); Lymphocytes % (auto) 19.4 %; Mean Corpuscular Hemoglobin 32.4 pg (25.0-34.0); Mean Corpuscular Hgb Conc 36.5 g/dL (32.0-36.0); Mean Corpuscular Volume 88.7 fL (80.0-100.0); Mean Platelet Volume 10.3 fL (9.4-12.4); Monocytes # (auto) 0.63 K/uL (0.11-0.59); Monocytes % (auto) 7.7 %; Neutrophils # (auto) 5.64 K/uL (1.40-6.50); Neutrophils % (auto) 69.3 %; Platelet Count 306 K/uL (130-400); RDW Coefficient of Variation 11.9 % (11.5-14.5); RDW Standard Deviation 38.5 fL (36.4-46.3); Red Blood Count 4.94 M/uL (4.70-6.10); White Blood Count 8.14 K/ul (4.8-10.8)
[2022-09-04] MEDS ORDERED: SODIUM CHLORIDE 0.9% IV ONE (10:15)
[2022-09-04] MEDS ORDERED: SINCALIDE IV ONE (10:15)
--- NOTE | 2022-09-04 10:16 | Hospitalist Progress Note ---
Date of Service September 04, 2022 Assessment & Plan (1) Acute upper abdominal pain: Plan: Elliot Gonzalez is a 62yo male without significant PMHx who was admitted to [facility] on 09/02 for upper abdominal pain and nausea for several days. Epigastric Abdominal Pain; Common Bile Duct Dilatation Epigastric abdominal pain with associated nausea, bloating and decreased appetite/tolerance of PO over several days. US showed 8mm CBD dilatation, and Tb yahaira elevated at 1.8. MRCP this morning with mild dilatation of gallbladder and common bile duct, with biliary sludge in gallbladder, but no cholelithiasis --> Suspect recently passed stone. - GI consulted - no ERCP - ordered HIDA scan - pending - consulted surgery for consideration of cholecystectomy while admitted - recs pending HIDA scan results - start clear liquid diet, NPO at midnight for possible surgery - continue LR @125cc/hr - continue Zosyn for now - PRN graduated pain regimen: Tylenol/Morphine - trend LFTs in AM FEN/GI: clear liquid diet (and NPO at midnight), LR @125cc/hr DVT Prophylaxis: SCDs, no chemoppx due to possible surgery Code Status: full Disposition: med/surg (2) Common bile duct dilatation: Admission and Anticipated Discharge Date Admission Date: September 02, 2022 Subjective Patient reports that he is no longer nauseous, but still has very mild upper abdominal tenderness. He is hungry/thirsty but remains NPO pending GI eval/MRCP. Physical Exam Physical Exam: General: A&Ox3. NAD. Cooperative. HEENT: Atraumatic, normocephalic. Pulm: CTAB A&P. -wheezes, -rales, -rhonchi. Symmetrical chest rise. No increase work of breathing. No respiratory distress. Cardiac: RRR, -mrg. Radial pulses intact and symmetrical. Abdominal: soft, non-distended, mild epigastric tenderness without guarding/rebound, BS x 4. Negative De Jesus sign. Skin: warm, dry, no rash Results & Data Results & Data ([facility]) Vital Signs (Past 12 Hours) Vital Signs Temp Pulse Resp BP Pulse Ox O2 Del Method 09/04/22 07:28 36.8 C 65 16 130/76 97 Room Air Laboratory Results 09/04/22 09/04/22 Range/Units 09:11 09:11 WBC 8.14 (4.8-10.8) K/ul RBC 4.94 (4.70-6.10) M/uL Hgb 16.0 (14.0-18.0) g/dl Hct 43.8 (42.0-52.0) % MCV 88.7 (80.0-100.0) fL MCH 32.4 (25.0-34.0) pg MCHC 36.5 H (32.0-36.0) g/dL RDW Std Deviation 38.5 (36.4-46.3) fL RDW Coeff of Shannon 11.9 (11.5-14.5) % Plt Count 306 (130-400) K/uL MPV 10.3 (9.4-12.4) fL Immature Gran % (Auto) 0.4 % Neut % (Auto) 69.3 % Lymph % (Auto) 19.4 % [place] % (Auto) 7.7 % Eos % (Auto) 2.6 % Baso % (Auto) 0.6 % Neut # (Auto) 5.64 (1.40-6.50) K/uL Lymph # (Auto) 1.58 (1.2-3.4) K/uL [place] # (Auto) 0.63 H (0.11-0.59) K/uL Eos # (Auto) 0.21 (0-0.50) K/uL Baso # (Auto) 0.05 (0-0.2) K/uL Immature Gran # (Auto) 0.03 (0.01-0.20) K/uL Sodium Pending Potassium Pending Chloride Pending Carbon Dioxide Pending Anion Gap Pending BUN Pending Creatinine Pending Est Cr Clr Drug Dosing Pending Est GFR ( Amer) Pending Est GFR (Non-Af Amer) Pending BUN/Creatinine Ratio Pending Glucose Pending Calcium Pending Magnesium Pending Total Bilirubin Pending AST Pending ALT Pending Alkaline Phosphatase Pending Total Protein Pending Albumin Pending Globulin Pending Albumin/Globulin Ratio Pending
[2022-09-04 10:37] LABS: Albumin Globulin Ratio 1.4 (0.9-2); Albumin Level 3.8 gm/dl (3.4-5.0); BUN Creatinine Ratio 9.1 (10-20); Bilirubin,Total 1.7 mg/dl (0.2-1.0); Creatinine Clr Calc Pharmacy 78.9 ml/min; Est GFR (African American) 92.9 ml/min; Est GFR (Non-African American) 80.2 ml/min; Globulin 2.7 gm/dl (2.5-4.0); Magnesium 1.9 mg/dl (1.7-2.4); Potassium 3.8 mmol/L (3.5-5.1); Total Protein 6.5 gm/dl (6.0-8.3)
--- NOTE | 2022-09-04 12:01 | Nuclear Medicine Report ---
NM hepatobiliary EF CLINICAL HISTORY: Right upper quadrant pain. Evaluate for cholecystitis. COMPARISON STUDY: CT of the abdomen and pelvis and right upper quadrant ultrasound September 02, 2022 and MRCP September 03, 2022. TECHNIQUE: 5.6 mCi of technetium 99m Choletec was injected IV at 9:45 AM on September 04, 2022. Following injection, imaging was performed in the anterior projection for 60 minutes. At this time, 1 .48 mcg of sincalide was injected IV as per protocol to estimate gallbladder ejection fraction. FINDINGS: Hepatic uptake of radiotracer is prompt and homogeneous. Activity is identified within the common bile duct and gallbladder at 10 minutes. Small bowel activity is noted at 25 minutes. Gallblad tiffany ejection fraction was estimated at 39%. Normal is greater than 30-35%. IMPRESSION: 1. No evidence for acute or chronic cholecystitis. Normal hepatobiliary scan. 2. Normal gallbladder ejection fraction of 39%. ACT 112: Negative or not required by law. Electronically signed by: Gage Wilkinson M.D. 09/04/2022 11:59 AM
--- NOTE | 2022-09-04 13:37 | Communication Note ---
Date of Service: September 04, 2022 Pt admitted w pain, el bili, (no other LFT elevation), mild dilation of main panc duct and CBD. MRCP w/o stones. Plan: No indication for ERCP. Will defer acute care for ? cholecystitis to gen surgery. He should have an OP EGD/EUS for the pancreas duct dilation,to r/o pancreas cancers and other pancreas/ductal abnormalities, but this does not preclude cholecystectomy if deemed necessary and this is not urgent. Our office will contact him to arrange.
--- NOTE | 2022-09-04 16:58 | Discharge Summary ---
Date of Service September 04, 2022 Admission HPI Per Admitting Provider Elliot Gonzalez is a 62-year-old male with no significant past medical history presenting with 4 days of persistent abdominal pain. Patient states 4 days ago he developed discomfort in the upper abdomen. He initially thought that it was secondary to a "stomach bug". However, the pain has been persistent for the last 4 days. Pain is severe ranging 7-10/10, constant, nonradiating, nonpleuritic. He has had nausea as well as the feeling of bloating with minimal oral intake. No vomiting or diarrhea. He has not eaten or drank much over the last 4 days. Patient did take half an oxycodone tablet she had leftover from his recent rotator cuff surgery. He reports some relief with that. He was able to sleep through the night and felt slightly better this morning. Otherwise,he denies chest pain, cough, shortness of breath. Denies fever or chills. No additional complaints at this time. In the ER, patient is afebrile, mildly hypertensive otherwise hemodynamically stable. No acute distress. He was administered morphine as well as Zofran which improved his symptoms. ER course: Morphine 4 mg IV Zofran 4 mg IV Normal saline x1 L Principal Diagnosis Constipation Discharge Exam General: A&Ox3. NAD. Cooperative. HEENT: Atraumatic, normocephalic. Pulm: CTAB A&P. -wheezes, -rales, -rhonchi. Symmetrical chest rise. No increase work of breathing. No respiratory distress. Cardiac: RRR, -mrg. Radial pulses intact and symmetrical. Abdominal: soft, non-distended, mild epigastric tenderness without guard ing/rebound, BS x 4. Negative De Jesus sign. Skin: warm, dry, no rash Discharge Data Allergies Allergy/AdvReac Type Severity Reaction Status Date / Time No Known Allergies Allergy Verified 09/02/22 17:47 Consultations 09/02/22 20:13 ED Decision to Admit Stat 09/02/22 22:02 Consult Gastroenterology Routine 09/03/22 12:21 Consult General Surgery Routine Ordered Studies Laboratory Results WBC 8.14 K/ul (4.8-10.8) 09/04/22 09:11 RBC 4.94 M/uL (4.70-6.10) 09/04/22 09:11 Hgb 16.0 g/dl (14.0-18.0) 09/04/22 09:11 Hct 43.8 % (42.0-52.0) 09/04/22 09:11 MCV 88.7 fL (80.0-100.0) 09/04/22 09:11 MCH 32.4 pg (25.0-34.0) 09/04/22 09:11 MCHC 36.5 g/dL (32.0-36.0) H 09/04/22 09:11 RDW Std Deviation 38.5 fL (36.4-46.3) 09/04/22 09:11 RDW Coeff of Shannon 11.9 % (11.5-14.5) 09/04/22 09:11 Plt Count 306 K/uL (130-400) 09/04/22 09:11 MPV 10.3 fL (9.4-12.4) 09/04/22 09:11 Immature Gran % (Auto) 0.4 % 09/04/22 09:11 Neut % (Auto) 69.3 % 09/04/22 09:11 Lymph % (Auto) 19.4 % 09/04/22 09:11 [place]oun % (Auto) 7.7 % 09/04/22 09:11 Eos % (Auto) 2.6 % 09/04/22 09:11 Baso % (Auto) 0.6 % 09/04/22 09:11 Neut # (Auto) 5.64 K/uL (1.40-6.50) 09/04/22 09:11 Lymph # (Auto) 1.58 K/uL (1.2-3.4) 09/04/22 09:11 Calhoun # (Auto) 0.63 K/uL (0.11-0.59) H 09/04/22 09:11 Eos # (Auto) 0.21 K/uL (0-0.50) 09/04/22 09:11 Baso # (Auto) 0.05 K/uL (0-0.2) 09/04/22 09:11 Immature Gran # (Auto) 0.03 K/uL (0.01-0.20) 09/04/22 09:11 Sodium 136 mmol/L (136-145) 09/04/22 09:11 Potassium 3.8 mmol/L (3.5-5.1) 09/04/22 09:11 Chloride 102 mmol/L (98-107) 09/04/22 09:11 Carbon Dioxide 29 mmol/L (21-32) 09/04/22 09:11 Anion Gap 5 (3-11) 09/04/22 09:11 BUN 9 mg/dl (6-23) 09/04/22 09:11 Creatinine 0.99 mg/dl (0.6-1.4) 09/04/22 09:11 Est Cr Clr Drug Dosing 78.9 ml/min 09/04/22 09:11 Est GFR ( Amer) 92.9 ml/min 09/04/22 09:11 Est GFR (Non-Af Amer) 80.2 ml/min 09/04/22 09:11 BUN/Creatinine Ratio 9.1 (10-20) L 09/04/22 09:11 Glucose 100 mg/dl (70-99(Fasting)) H 09/04/22 09:11 Calcium 9.0 mg/dl (8.5-10.1) 09/04/22 09:11 Magnesium 1.9 mg/dl (1.7-2.4) 09/04/22 09:11 Total Bilirubin 1.7 mg/dl (0.2-1.0) H 09/04/22 09:11 Direct Bilirubin 0.3 mg/dl (0-0.2) H 09/03/22 06:41 AST 18 U/L (13-39) 09/04/22 09:11 ALT 11 U/L (7-52) 09/04/22 09:11 Alkaline Phosphatase 51 U/L (34-104) 09/04/22 09:11 Troponin I High Sens 6.3 pg/ml (0-20) 09/02/22 14:54 Total Protein 6.5 gm/dl (6.0-8.3) 09/04/22 09:11 Albumin 3.8 gm/dl (3.4-5.0) 09/04/22 09:11 Globulin 2.7 gm/dl (2.5-4.0) 09/04/22 09:11 Albumin/Globulin Ratio 1.4 (0.9-2) 09/04/22 09:11 Lipase 33 U/L (11-82) 09/02/22 14:54 Urine Color Yellow 09/02/22 18:25 Urine Appearance Clear (Clear) 09/02/22 18:25 Urine pH 6.5 (4.5-7.5) 09/02/22 18:25 Ur Specific [place] > 1.045 (1.000-1.030) H 09/02/22 18:25 Urine Protein Negative (Negative) 09/02/22 18:25 Urine Glucose (UA) Negative (Negative) 09/02/22 18:25 Urine Ketones 2+ (Negative) H 09/02/22 18:25 Urine Blood Negative (Negative) 09/02/22 18:25 Urine Nitrite Negative (Negative) 09/02/22 18:25 Urine Bilirubin Negative (Negative) 09/02/22 18:25 Urine Urobilinogen Negative (Negative) 09/02/22 18:25 Ur Leukocyte Esterase Negative (Negative) 09/02/22 18:25 SARS-CoV-2, RNA, NAAT NEGATIVE (NEGATIVE) 09/02/22 18:15 Impressions Abdomen/Pelvis CT 09/02/22 16:22 CT OF THE ABDOMEN AND PELVIS WITH CONTRAST CLINICAL HISTORY: 4 days upper abd pain, anorexia, low grade temp COMPARISON STUDY: None. TECHNIQUE: Following IV administration of 90 mL of Optiray, axial images of the abdomen and pelvis were obtained from the lung bases to the proximal femurs. Images were reviewed in the axial, sagittal, and coronal planes. IV contrast was administered without complication. Automated exposure control was utilized for the study. A dose lowering technique was utilized adhering to the principles of ALARA. CT DOSE: 380.72 mGy.cm FINDINGS: Mild circumferential wall thickening of the distal esophagus is noted. No pneumatosis, free air or portal venous gas is present. Liver morphology is n ormal. There is no biliary ductal dilatation. There is a 2.9 cm intermediate attenuation right hepatic lobe lesion on axial image 106 of 401. This may have minimal nodular peripheral enhancement. Spleen, adrenal glands, kidneys and pancreas are unremarkable. There is no hydronephrosis. Bladder wall thickening is noted. This is accentuated by underdistention. No urinary calculi are present. The caliber and wall thickness of small and large bowel are normal. There is colonic diverticulosis without evidence for acute diverticulitis. There is no evidence for acute appendicitis. There is no free fluid. No acute fracture is present. There are no suspicious osseous lesions. IMPRESSION: 1. No bowel obstruction. No bowel wall thickening. No evidence for acute appendicitis. 2. Mild circumferential wall thickening of the distal esophagus. This may reflect esophagitis. 3. Bladder wall thickening. This could be due to underdistention however could be correlated with urinalysis. 4. 2.9 cm intermediate attenuation right hepatic lobe lesion. This is indeterminate however a hemangioma is favored. Nonemergent right upper quadrant ultrasound is recommended. ACT 112: Negative or not required by law. Electronically signed by: Gage Wilkinson M.D. 09/02/2022 5:48 PM Liver Ultrasound 09/02/22 18:13 ABDOMINAL ULTRASOUND, RIGHT UPPER QUADRANT HISTORY: diffuse upper abd pain, elevated bilirubin. COMPARISON: Abdomen and pelvis CT 09/02/2022. FINDINGS: Pancreas: The pancreatic tail is obscured by overlying bowel gas. The remaining portions of the pancreas are within normal limits. The pancreatic duct is borderline dilated measuring 3 mm in diameter. Liver: There is a 3.2 x 2.7 x 2.5 cm hyperechoic lesion within the right hepatic lobe. Although technically indeterminate by ultrasound this likely represents a hemangioma when compared to the prior CT examination. Gallbladder: Small amount of sludge within the gallbladder. No gallstones. No gallbladder wall thickening. Negative sonographic De Jesus sign. CBD: 8 mm. Right kidney: No hydronephrosis. IMPRESSION: 1. Interval development of mild dilatation of the common bile duct and main pancreatic duct since the same day CT performed 3 hours earlier. Therefore, this could represent an obstructing stone or less likely an occult obstructing lesion. GI consultation recommended. 2. Redemonstration of the 3.2 x 2.7 x 2.5 cm hyperechoic lesion within the right hepatic lobe. This favors a hemangioma. ACT 112: Negative or not required by law. . Electronically signed by: Jacoby Lee M.D. 09/02/2022 7:46 PM Cholangiopancreatography MRI 09/03/22 00:00 MRCP CLINICAL HISTORY: CBD and pancreatic duct dilation TECHNIQUE: Utilizing a 1.5 Syl magnet and dedicated coil, multiplanar, multiecho imaging of the upper abdomen was performed utilizing heavily T2 weighted pulsing sequences without IV contrast. COMPARISON STUDY: CT of the abdomen and pelvis and right upper quadrant ultrasound September 02, 2022. FINDINGS: Slight biliary ductal dilatation is noted. The common bile duct measures 7 mm in caliber. No common bile duct calculi are identified. There is slight dilatation of the pancreatic duct, measuring 3 mm in caliber. No caliber change within the pancreatic duct is noted. The gallbladder is mildly distended. There may be mild gallbladder wall thickening. A 2.9 cm lobulated T2 hyperintense right hepatic lobe lesion was echogenic and favors a hemangioma. There are no additional hepatic lesions. Spleen, adrenal glands and kidneys are unremarkable. There is no peripancreatic fluid. There are no peripancreatic fluid collections. No pancreatic lesions identified on unenhanced exam. There is no abdominal lymphadenopathy. Caliber and wall thickness of visualized small and large bowel are normal. IMPRESSION: 1. Slight biliary and pancreatic ductal dilatation. No common bile duct calculi. No caliber change within the pancreatic duct. No pancreatic lesion identified on unenhanced exam. 2. Mild gallbladder distention with minimal gallbladder wall thickening. If suspicion for acute cholecystitis, a hepatobiliary scan could be obtained. 3. 2.9 cm T2 hyperintense right hepatic lobe lesion suggestive of a hemangioma. ACT 112: Negative or not required by law. Electronically signed by: Gage Wilkinson M.D. 09/03/2022 10:42 AM Hepatobiliary Scan Nuclear Medicine 09/04/22 14:00 NM hepatobiliary EF CLINICAL HISTORY: Right upper quadrant pain. Evaluate for cholecystitis. COMPARISON STUDY: CT of the abdomen and pelvis and right upper quadrant ultrasound September 02, 2022 and MRCP September 03, 2022. TECHNIQUE: 5.6 mCi of technetium 99m Choletec was injected IV at 9:45 AM on September 04, 2022. Following injection, imaging was performed in the anterior projection for 60 minutes. At this time, 1.48 mcg of sincalide was injected IV as per protocol to estimate gallbladder ejection fraction. FINDINGS: Hepatic uptake of radiotracer is prompt and homogeneous. Activity is identified within the common bile duct and gallbladder at 10 minutes. Small bowel activity is noted at 25 minutes. Gallbladder ejection fraction was estimated at 39%. Normal is greater than 30-35%. IMPRESSION: 1. No evidence for acute or chronic cholecystitis. Normal hepatobiliary scan. 2. Normal gallbladder ejection fraction of 39%. ACT 112: Negative or not required by law. Electronically signed by: Gage Wilkinson M.D. 09/04/2022 11:59 AM Hospital Course (1) Acute upper abdominal pain: 62 yo male without significant PMHx who was admitted to [facility] on 09/02 for upper abdominal pain and nausea for several days. Epigastric Abdominal Pain, improving Common Bile Duct Dilatation Constipation Epigastric abdominal pain with associated nausea, bloating and decreased appetite/tolerance of PO over several days. US showed 8mm CBD dilatation, and Tbili elevated at 1.8. MRCP with mild dilatation of gallbladder and common bile duct, with biliary sludge in gallbladder, but no cholelithiasis. AST, ALT, and alk phos normal. - HIDA scan - normal, no evidence of acute or chronic cholecystectomy - GI consulted -no ERCP indicated -will need outpatient EGD/EUS for the pancreas duct dilation, to r/o pancreas cancers, and other pancreas/ductal abnormalities; this does not preclude cholecystectomy if deemed necessary and this is not urgent. F/u 2-3 weeks. - Gen surg consulted -no recommendation for cholecystectomy at this time given HIDA scan findings - d/c'd Zosyn - several symptoms may stem from constipation as moderate stool seen on CT imaging, recommend Miralax 1 capsule bid with titration as needed for the next 1-2 weeks - f/u pcp after discharge (2) Common bile duct dilatation: Total Time Total Time Spent Total Time Spent (In Minutes): 30 Discharge Plan Discharge Items Patient Disposition: Home - Self-Care Reason For Visit: ABDOMINAL PAIN Discharge Diagnosis: Constipation Condition on Discharge: Good Activity: Per Instructions section Non-emergency contact: Primary Care Provider Call non-emergency contact if: you have any medication questions Follow-up/Referrals: Niels Cruz MD [Primary Care Provider] - Diet: Regular Addtl Attending Provider Instructions: You were admitted to the hospital with abdominal pain and nausea. After further testing there was initial thought that there was an issue with the gallbladder however further imaging did not show any significant abnormality. For now it appears that a lot of your symptoms could have been attributed to constipation. For this I suggest you try 1 capsule MiraLAX twice a day for the next 1 to 2 weeks. On a day by day basis we can titrate the amount of MiraLAX necessary to relieve her bowels. Please stay well-hydrated and drink about 60 ounces of fluids a day. Going forward you will follow-up with your GI doctor in the next few weeks which should contact you to schedule an appointment. It appears that they want to do a scope (EGD/EUS) down your esophagus for further evaluation. You should also follow-up with your primary care provider to discuss this hospitalization further guidance. Pending Studies at Discharge: No Stand-Alone Forms: My [facility], Smoking Cessation Medications and DC Order Prescriptions: Continued oxycodone 5 mg tablet 2.5 mg PO ONCE PRN (Reason: Pain) Rx Instructions: PER PT'S SPOUSE "HAD A FEW LEFT OVER FROM SURGERY IN MAY". Discharge Orders: Discharge Order (Routine); Ordered 09/04/22 Ordered By: Marcelo Nunez Admission Data Admit Date/Time: 09/02/22 21:03 Attending Provider: Terrell Quijano Admit Provider: Beckie Salgado Primary Care Provider: Niels Cruz Other Providers: Mustapha Rosado ; Beckie Salgado ; Kev Savage Other Interventions: Discharge Summary Assessment (RN) Last Done: 09/04/22 17:05 Supervising Physician Co-Signing Physician Notes I personally examined the patient and verified all adorno points of history and exam, discussed case, and agree with decision making with Dr Nunez Feeling better and would like to go home. Revisited HPIhe first started getting stomach pain whenever he was leaving visiting his daughter in [place]. He noted a lot of upper abdominal pain and nausea, as well as easy bloating, and a relative paucity of bowel movements. No true fevers chills or sweatsalthough he did have a few low-grade temperatures around 99, maybe 1 time 100. Poor p.o. intake due to feeling bloated and visibly seeing his stomach bloated after drinkingso he was self restricted on fluids, which then led to a degree of lethargy. vitals noted nad heent nc at mmm breathing unlabored no accessory muscles good effort skin no rashes no pallor or icterus no focal deficits abd pain - etiology initially unclear but with negative GB w/u and revisiting HPI sounds most c/w constipation - safe/stable for home, miralax. close PCP f/u CBD dilation - outpt EUS. suspect liver lesion just hemangioma but w/u will likely helpful eval for this too safe for home, otherwise as above Resident Activity Tracking Resident Involvement: Resident Care Provided Care Provided: Adult Hospital Medicine
--- NOTE | 2022-09-04 18:51 | Billing Data ---
Date of Service September 04, 2022 Coding Level of Care Code HOSP INP/OBS DISCH 30 MIN/LESS
== END 2022-09-04 17:25 | disposition home or self-care (01) ==
LOC: 3W 14:43 → ED 14:43 → SUATTDRO 21:03 → 3W 21:40